=== PATIENT | female | born 1965 | race Caucasian/White ===

== ENCOUNTER 2022-08-29 12:42 | Inpatient (IN) | payer SELFPAY ==
[~2022-08-29] VITALS: Ht 170.2 cm; Wt 83.9 kg
[2022-08-29 13:59] LABS: BASOPHILS % 0.3 % (0.0-1.0); EOSINOPHILS # (AUTO) 0.1 (0.0-0.4); EOSINOPHILS % 0.6 % (0.0-6.0); LYMPHOCYTES # (AUTO) 1.7 (1.0-3.2); MEAN CORPUSCULAR HEMOGLOBIN 18.4 pg (28-32); MEAN CORPUSCULAR HGB CONC 27.9 g/dL (31-35); MONOCYTES # (AUTO) 1.3 (0.2-0.8); MONOCYTES % 10.1 % (4.4-11.3); NEUTROPHILS # (AUTO) 9.3 (2.1-6.9); PLATELET COUNT 300 x10e3/uL (140-360); RED BLOOD COUNT 3.09 x10e6/uL (3.6-5.1); RED CELL DISTRIBUTION WIDTH 20.4 % (11.7-14.4)
[2022-08-29 14:00] LABS: INR 1.23; PARTIAL THROMBOPLASTIN TIME 31.2 seconds (23.8-35.5)
[2022-08-29] MEDS ORDERED: SODIUM CHLORIDE 0.9% 250ML 250 ML IV ONE ×2 (14:00→21:00)
[2022-08-29 14:03] LABS: ALANINE AMINOTRANSFERASE 11 IU/L (0-55); ALBUMIN 3.2 g/dL (3.5-5.0); ALBUMIN/GLOBULIN RATIO 0.8 (0.8-2.0); ALKALINE PHOSPHATASE 124 IU/L (40-150); ANION GAP 15.8 mmol/L (8-16); BLOOD UREA NITROGEN 10 mg/dL (7-26); BUN/CREATININE RATIO 6 (6-25); CALCIUM 9.2 mg/dL (8.4-10.2); CARBON DIOXIDE 21 mmol/L (22-29); CHLORIDE 103 mmol/L (98-107); CREATININE, SERUM 1.67 mg/dL (0.57-1.11); GLUCOSE 107 mg/dL (74-118); POTASSIUM 3.8 mmol/L (3.5-5.1); SODIUM 136 mmol/L (136-145)
[2022-08-29 14:04] LABS: HEMATOCRIT 20.4 % (34.2-44.1); HEMOGLOBIN 5.7 g/dL (12.0-16.0)
[2022-08-29 14:36] LABS: FERRITIN 22.42 ng/mL (4.63-204.00)
[2022-08-29] MEDS ORDERED: IOPAMIDOL 370 MG/ML 100 ML INFUS..BTL INJ ONE (15:00)
[2022-08-29 15:14] LABS: EOSINOPHILS % (MANUAL) 1 % (0-7); LYMPHOCYTES % (MANUAL) 19 % (19-48); MONOCYTES % (MANUAL) 10 % (3.4-9.0); MYELOCYTES % (MANUAL) 1 % (0-0); NEUTROPHILS % (MANUAL) 65 % (40-74); NUCLEATED RED BLOOD CELLS 1; PLATELET ESTIMATE ADEQUATE; PLATELET MORPHOLOGY COMMENT NORMAL; RBC MORPHOLOGY COMMENT NORMAL
[2022-08-29] MEDS ORDERED: SODIUM CHLORIDE 0.9% 250ML 250 ML ONE ×2 (15:31→20:15)
[2022-08-29] MEDS: SODIUM CHLORIDE 0.9% 1000ML 1,000 ML IV SCH ×2 (15:52→21:53)
[2022-08-29 15:56] VITALS: BP 160/72
[2022-08-29 15:59] VITALS: BP 160/72
[2022-08-29 16:10] VITALS: BP 160/72
[2022-08-29] MEDS ORDERED: VALIUM10 MG PO (16:10)
[2022-08-29] MEDS ORDERED: ACETAMINOPHEN 325 MG TAB PO PRN (19:15)
[2022-08-29 20:00] VITALS: BP 152/80
[2022-08-29 21:00] VITALS: BP 152/80
[2022-08-29 21:11] LABS: CLARITY,URINE CLEAR (CLEAR); COLOR,URINE YELLOW (YELLOW); KETONES,URINE NEGATIVE (NEGATIVE); LEUKOCYTE ESTERASE ,URINE NEGATIVE (NEGATIVE); NITRITE,URINE NEGATIVE (NEGATIVE); PROTEIN,URINE DIPSTICK NEGATIVE (NEGATIVE); URINE UROBILINOGEN 1 mg/dL (0.2 - 1)
[2022-08-29 21:18] LABS: BACTERIA,URINE MODERATE /HPF; EPITHELIAL CELLS,URINE FEW /LPF; WBC,URINE (MAN) 0-5 /HPF (0-5)
[2022-08-29] MEDS: ONDANSETRON HCL INJ 2MG/ML 2ML 2 MG/ML VIAL IV PRN (21:50)
[2022-08-29] MEDS: Morphine 4mg INJECTION 4 MG/ML INJ IV PRN (21:50)
[2022-08-30] VITALS (9 sets, daily range): BP systolic 142–163; BP diastolic 71–78
[2022-08-30] MEDS: Morphine 4mg INJECTION 4 MG/ML INJ IV PRN ×3 (05:01→23:53)
[2022-08-30] MEDS: ONDANSETRON HCL INJ 2MG/ML 2ML 2 MG/ML VIAL IV PRN ×2 (05:01→17:29)
[2022-08-30] MEDS: SODIUM CHLORIDE 0.9% 1000ML 1,000 ML IV SCH ×3 (05:01→20:45)
[2022-08-30 05:52] LABS: BASOPHILS # (AUTO) 0.1 (0.0-0.1); BASOPHILS % 0.7 % (0.0-1.0); EOSINOPHILS # (AUTO) 0.1 (0.0-0.4); EOSINOPHILS % 0.9 % (0.0-6.0); HEMATOCRIT 29.5 % (34.2-44.1); HEMOGLOBIN 8.9 g/dL (12.0-16.0); LYMPHOCYTES # (AUTO) 2.1 (1.0-3.2); LYMPHOCYTES % 16.4 % (18.0-39.1); MEAN CORPUSCULAR HEMOGLOBIN 22.3 pg (28-32); MEAN CORPUSCULAR HGB CONC 30.2 g/dL (31-35); MEAN CORPUSCULAR VOLUME 73.9 fL (81-99); MONOCYTES # (AUTO) 1.3 (0.2-0.8); MONOCYTES % 10.3 % (4.4-11.3); NEUTROPHILS # (AUTO) 8.5 (2.1-6.9); NEUTROPHILS % 66.9 % (38.7-80.0); PLATELET COUNT 266 x10e3/uL (140-360); RED BLOOD COUNT 3.99 x10e6/uL (3.6-5.1); RED CELL DISTRIBUTION WIDTH 22.1 % (11.7-14.4)
[2022-08-30 06:01] LABS: INR 1.3; PROTHROMBIN TIME 16.7 seconds (11.9-14.5)
[2022-08-30 06:17] LABS: ALBUMIN 2.8 g/dL (3.5-5.0); ALBUMIN/GLOBULIN RATIO 0.8 (0.8-2.0); ANION GAP 14.1 mmol/L (8-16); CALCIUM 8.4 mg/dL (8.4-10.2); CREATININE, SERUM 1.51 mg/dL (0.57-1.11); POTASSIUM 4.1 mmol/L (3.5-5.1)
[2022-08-30] MEDS: IRON SUCROSE 100 MG in SODIUM CHLORIDE 0.9% 100 ML IV SCH (09:03)
[2022-08-30 09:20] LABS: LYMPHOCYTES % (MANUAL) 14 % (19-48); MONOCYTES % (MANUAL) 4 % (3.4-9.0); MYELOCYTES % (MANUAL) 2 % (0-0); NEUTROPHILS % (MANUAL) 79 % (40-74); PROMYELOCYTES % (MANUAL) 1 % (0-0)
[2022-08-30 09:21] LABS: PLATELET ESTIMATE ADEQUATE; PLATELET MORPHOLOGY COMMENT NORMAL; RBC MORPHOLOGY COMMENT NORMAL
[2022-08-30] MEDS: SENNOSIDES 8.6 MG TAB PO SCH (12:33)
[2022-08-30] MEDS: CYANOCOBALAMIN 1,000 MCG TAB PO SCH (12:33)
[2022-08-30] MEDS: DOCUSATE SODIUM 100 MG CAP PO SCH (12:33)
[2022-08-30] MEDS ORDERED: PROPOFOL IV EMULSION 10 MG/ML 20 ML VIAL ONE ×2 (13:12→13:36)
[2022-08-30] MEDS ORDERED: LIDOCAINE HCL 2% LOCAL INJ 5 ML SDV VIAL INJ ONE ×2 (13:12→13:36)
[2022-08-30] MEDS ORDERED: ESMOLOL HCL 100MG/10ML 10 MG/ML VIAL ONE (13:36)
[2022-08-30] MEDS ORDERED: ONDANSETRON HCL INJ 2MG/ML 2ML 2 MG/ML VIAL ONE (13:36)
[2022-08-30] MEDS ORDERED: SEVOFLURANE INHAL SOLN 250 ML PEN BTL ONE (13:36)
[2022-08-30] MEDS ORDERED: DEXAMETHASONE SOD PHOS INJ 4 MG/ML SDV ONE (13:36)
[2022-08-30] MEDS ORDERED: POVIDONE IODINE 0.05% 0.05 % ML PO ONE (13:36)
[2022-08-30 14:51] LABS: HEMATOCRIT 27.9 % (34.2-44.1); HEMOGLOBIN 8.7 g/dL (12.0-16.0)
[2022-08-30] MEDS ORDERED: FENTANYL CITRATE/PF 100MCG/2 ML INJ ONE (17:40)
[2022-08-30] MEDS ORDERED: MIDAZOLAM HCL 2 MG/2 ML VIAL ONE (17:40)
[2022-08-31] VITALS: BP 165/87
[2022-08-31 04:00] VITALS: BP 158/82
[2022-08-31 05:23] LABS: BASOPHILS # (AUTO) 0.1 (0.0-0.1); BASOPHILS % 0.6 % (0.0-1.0); EOSINOPHILS # (AUTO) 0.1 (0.0-0.4); EOSINOPHILS % 1.1 % (0.0-6.0); HEMATOCRIT 28.2 % (34.2-44.1); HEMOGLOBIN 8.7 g/dL (12.0-16.0); LYMPHOCYTES # (AUTO) 1.9 (1.0-3.2); LYMPHOCYTES % 15.7 % (18.0-39.1); MEAN CORPUSCULAR HEMOGLOBIN 22.3 pg (28-32); MEAN CORPUSCULAR HGB CONC 30.9 g/dL (31-35); MEAN CORPUSCULAR VOLUME 72.1 fL (81-99); MONOCYTES # (AUTO) 1.2 (0.2-0.8); MONOCYTES % 9.5 % (4.4-11.3); NEUTROPHILS # (AUTO) 8.3 (2.1-6.9); NEUTROPHILS % 66.9 % (38.7-80.0); PLATELET COUNT 334 x10e3/uL (140-360); RED BLOOD COUNT 3.91 x10e6/uL (3.6-5.1); RED CELL DISTRIBUTION WIDTH 22.3 % (11.7-14.4)
[2022-08-31 05:46] LABS: ALBUMIN 2.7 g/dL (3.5-5.0); ALBUMIN/GLOBULIN RATIO 0.7 (0.8-2.0); ANION GAP 11.9 mmol/L (8-16); CALCIUM 8.2 mg/dL (8.4-10.2); CREATININE, SERUM 1.35 mg/dL (0.57-1.11); MAGNESIUM 2.1 MG/DL (1.3-2.1); POTASSIUM 3.9 mmol/L (3.5-5.1)
[2022-08-31] MEDS: SODIUM CHLORIDE 0.9% 1000ML 1,000 ML IV SCH ×3 (05:49→21:51)
[2022-08-31 08:00] VITALS: BP 160/73
[2022-08-31 08:48] VITALS: BP 160/73
[2022-08-31] MEDS: SENNOSIDES 8.6 MG TAB PO SCH (09:00)
[2022-08-31] MEDS: CYANOCOBALAMIN 1,000 MCG TAB PO SCH (09:03)
[2022-08-31] MEDS: DOCUSATE SODIUM 100 MG CAP PO SCH (09:03)
[2022-08-31] MEDS: Morphine 4mg INJECTION 4 MG/ML INJ IV PRN ×4 (09:53→22:49)
[2022-08-31 10:33] LABS: EOSINOPHILS % (MANUAL) 1 % (0-7); LYMPHOCYTES % (MANUAL) 10 % (19-48); METAMYELOCYTES % (MANUAL) 1 % (0-0); MONOCYTES % (MANUAL) 10 % (3.4-9.0); NEUTROPHILS % (MANUAL) 75 % (40-74)
[2022-08-31 10:34] LABS: PLATELET ESTIMATE ADEQUATE; PLATELET MORPHOLOGY COMMENT NORMAL
[2022-08-31 10:35] LABS: ANISOCYTOSIS SLIGHT
[2022-08-31] MEDS: IRON SUCROSE 100 MG in SODIUM CHLORIDE 0.9% 100 ML IV SCH (10:47)
[2022-08-31] MEDS: HYDRALAZINE HCL 20 MG/ML VIAL IV PRN ×2 (12:27→22:48)
[2022-08-31] MEDS ORDERED: AMLODIPINE BESYLATE 5 MG TAB PO SCH (13:30)
[2022-08-31 15:57] VITALS: BP 134/82
[2022-08-31] MEDS: PANTOPRAZOLE SOD 40 MG TABEC PO SCH (16:20)
[2022-08-31] MEDS: AMLODIPINE BESYLATE 5 MG TAB PO SCH (16:20)
[2022-08-31 20:00] VITALS: BP 164/82
[2022-09-01] VITALS (7 sets, daily range): BP systolic 134–179; BP diastolic 73–95
[2022-09-01] MEDS: Morphine 4mg INJECTION 4 MG/ML INJ IV PRN ×5 (03:16→22:35)
[2022-09-01 06:27] LABS: BASOPHILS # (AUTO) 0.1 (0.0-0.1); BASOPHILS % 0.9 % (0.0-1.0); EOSINOPHILS # (AUTO) 0.1 (0.0-0.4); EOSINOPHILS % 0.9 % (0.0-6.0); HEMOGLOBIN 9.8 g/dL (12.0-16.0); LYMPHOCYTES # (AUTO) 2.1 (1.0-3.2); LYMPHOCYTES % 13.8 % (18.0-39.1); MEAN CORPUSCULAR HEMOGLOBIN 22.3 pg (28-32); MEAN CORPUSCULAR HGB CONC 29.7 g/dL (31-35); MEAN CORPUSCULAR VOLUME 75.2 fL (81-99); MONOCYTES # (AUTO) 1.2 (0.2-0.8); MONOCYTES % 7.8 % (4.4-11.3); NEUTROPHILS # (AUTO) 11.1 (2.1-6.9); NEUTROPHILS % 72.7 % (38.7-80.0); PLATELET COUNT 446 x10e3/uL (140-360); RED BLOOD COUNT 4.39 x10e6/uL (3.6-5.1); RED CELL DISTRIBUTION WIDTH 23.8 % (11.7-14.4)
[2022-09-01 06:58] LABS: ALBUMIN 2.9 g/dL (3.5-5.0); ALBUMIN/GLOBULIN RATIO 0.8 (0.8-2.0); ANION GAP 13.1 mmol/L (8-16); CALCIUM 8.6 mg/dL (8.4-10.2); CREATININE, SERUM 1.35 mg/dL (0.57-1.11); POTASSIUM 4.1 mmol/L (3.5-5.1)
[2022-09-01] MEDS: DOCUSATE SODIUM 100 MG CAP PO SCH (08:21)
[2022-09-01] MEDS: CYANOCOBALAMIN 1,000 MCG TAB PO SCH (08:21)
[2022-09-01] MEDS: PANTOPRAZOLE SOD 40 MG TABEC PO SCH (08:21)
[2022-09-01] MEDS: SENNOSIDES 8.6 MG TAB PO SCH (08:21)
[2022-09-01] MEDS: AMLODIPINE BESYLATE 5 MG TAB PO SCH (08:24)
[2022-09-01] MEDS: IRON SUCROSE 100 MG in SODIUM CHLORIDE 0.9% 100 ML IV SCH (09:56)
[2022-09-01] MEDS ORDERED: PANTOPRAZOLE SOD 40 MG TABEC PO SCH (10:00)
[2022-09-01] MEDS: HYDRALAZINE HCL 20 MG/ML VIAL IV PRN ×2 (13:30→21:51)
[2022-09-01] MEDS: SODIUM CHLORIDE 0.9% 1000ML 1,000 ML IV SCH (13:32)
[2022-09-01] MEDS ORDERED: LOSARTAN POTASSIUM 25 MG TAB PO SCH (17:50)
[2022-09-02] VITALS (7 sets, daily range): BP systolic 146–196; BP diastolic 70–95
[2022-09-02] MEDS: SODIUM CHLORIDE 0.9% 1000ML 1,000 ML IV SCH ×3 (02:56→21:36)
[2022-09-02 05:09] LABS: BASOPHILS # (AUTO) 0.1 (0.0-0.1); BASOPHILS % 0.5 % (0.0-1.0); EOSINOPHILS # (AUTO) 0.1 (0.0-0.4); EOSINOPHILS % 0.8 % (0.0-6.0); HEMATOCRIT 31.2 % (34.2-44.1); HEMOGLOBIN 9.4 g/dL (12.0-16.0); LYMPHOCYTES # (AUTO) 1.3 (1.0-3.2); LYMPHOCYTES % 8.9 % (18.0-39.1); MEAN CORPUSCULAR HEMOGLOBIN 22.5 pg (28-32); MEAN CORPUSCULAR HGB CONC 30.1 g/dL (31-35); MEAN CORPUSCULAR VOLUME 74.8 fL (81-99); MONOCYTES # (AUTO) 0.9 (0.2-0.8); NEUTROPHILS # (AUTO) 11.9 (2.1-6.9); NEUTROPHILS % 81.8 % (38.7-80.0); PLATELET COUNT 462 x10e3/uL (140-360); RED BLOOD COUNT 4.17 x10e6/uL (3.6-5.1); RED CELL DISTRIBUTION WIDTH 24.4 % (11.7-14.4)
[2022-09-02 05:36] LABS: ANION GAP 14.9 mmol/L (8-16); CALCIUM 8.6 mg/dL (8.4-10.2); CREATININE, SERUM 1.13 mg/dL (0.57-1.11); POTASSIUM 3.9 mmol/L (3.5-5.1)
[2022-09-02] MEDS: PANTOPRAZOLE SOD 40 MG TABEC PO SCH (09:00)
[2022-09-02] MEDS: DOCUSATE SODIUM 100 MG CAP PO SCH (09:00)
[2022-09-02] MEDS: CYANOCOBALAMIN 1,000 MCG TAB PO SCH (09:00)
[2022-09-02] MEDS: SENNOSIDES 8.6 MG TAB PO SCH (09:00)
[2022-09-02] MEDS: Morphine 4mg INJECTION 4 MG/ML INJ IV PRN (09:36)
[2022-09-02] MEDS: IRON SUCROSE 100 MG in SODIUM CHLORIDE 0.9% 100 ML IV SCH (09:44)
[2022-09-02] MEDS ORDERED: FENTANYL CITRATE/PF 100MCG/2 ML INJ ONE (12:16)
[2022-09-02] MEDS ORDERED: MIDAZOLAM HCL 2 MG/2 ML VIAL ONE (12:16)
[2022-09-02] MEDS ORDERED: IOPAMIDOL 610MG/1ML 300 MG/ML VIAL IV ONE (16:14)
[2022-09-02] MEDS ORDERED: PHENAZOPYRIDINE HCL 100 MG TAB PO PRN (17:00)
[2022-09-02] MEDS ORDERED: ACETAMINOPHEN/CODEINE 300MG - 30MG TAB PO PRN (17:00)
[2022-09-02] MEDS ORDERED: ACETAMINOPHEN 1000 MG/100 ML 100 ML IV ONE (17:41)
[2022-09-02] MEDS ORDERED: ACETAMINOPHEN 1000 MG/100 ML IV ONE (17:42)
[2022-09-02] MEDS: AMLODIPINE BESYLATE 5 MG TAB PO SCH (21:34)
[2022-09-02] MEDS: LOSARTAN POTASSIUM 25 MG TAB PO SCH (21:35)
[2022-09-03 05:55] LABS: BASOPHILS # (AUTO) 0.1 (0.0-0.1); BASOPHILS % 0.3 % (0.0-1.0); HEMATOCRIT 33.5 % (34.2-44.1); HEMOGLOBIN 10.1 g/dL (12.0-16.0); LYMPHOCYTES # (AUTO) 0.9 (1.0-3.2); LYMPHOCYTES % 3.9 % (18.0-39.1); MEAN CORPUSCULAR HEMOGLOBIN 22.5 pg (28-32); MEAN CORPUSCULAR HGB CONC 30.1 g/dL (31-35); MEAN CORPUSCULAR VOLUME 74.8 fL (81-99); MONOCYTES # (AUTO) 0.5 (0.2-0.8); NEUTROPHILS # (AUTO) 21.6 (2.1-6.9); NEUTROPHILS % 92.9 % (38.7-80.0); PLATELET COUNT 459 x10e3/uL (140-360); RED BLOOD COUNT 4.48 x10e6/uL (3.6-5.1); RED CELL DISTRIBUTION WIDTH 25.4 % (11.7-14.4)
[2022-09-03 06:20] LABS: ALBUMIN 2.8 g/dL (3.5-5.0); ALBUMIN/GLOBULIN RATIO 0.7 (0.8-2.0); ANION GAP 14.5 mmol/L (8-16); CALCIUM 8.8 mg/dL (8.4-10.2); CREATININE, SERUM 1.13 mg/dL (0.57-1.11); MAGNESIUM 2.2 MG/DL (1.3-2.1); POTASSIUM 4.5 mmol/L (3.5-5.1)
[2022-09-03] MEDS: SODIUM CHLORIDE 0.9% 1000ML 1,000 ML IV SCH ×2 (07:30→17:29)
[2022-09-03 08:00] VITALS: BP 152/68
[2022-09-03 08:39] VITALS: BP 152/68
[2022-09-03] MEDS: DOCUSATE SODIUM 100 MG CAP PO SCH (08:43)
[2022-09-03] MEDS: PANTOPRAZOLE SOD 40 MG TABEC PO SCH (08:44)
[2022-09-03] MEDS: SENNOSIDES 8.6 MG TAB PO SCH (08:44)
[2022-09-03] MEDS: LOSARTAN POTASSIUM 25 MG TAB PO SCH (08:44)
[2022-09-03] MEDS: AMLODIPINE BESYLATE 5 MG TAB PO SCH (08:44)
[2022-09-03] MEDS: CYANOCOBALAMIN 1,000 MCG TAB PO SCH (08:44)
[2022-09-03] MEDS: IRON SUCROSE 100 MG in SODIUM CHLORIDE 0.9% 100 ML IV SCH (08:45)
[2022-09-03 08:51] LABS: LYMPHOCYTES % (MANUAL) 4 % (19-48); MONOCYTES % (MANUAL) 1 % (3.4-9.0); NEUTROPHILS % (MANUAL) 95 % (40-74); PLATELET ESTIMATE ADEQUATE; PLATELET MORPHOLOGY COMMENT NORMAL; RBC MORPHOLOGY COMMENT NORMAL
[2022-09-03 14:57] VITALS: BP 169/82
[2022-09-03 16:00] VITALS: BP 175/90
[2022-09-03 16:15] VITALS: BP 156/78
[2022-09-03] MEDS: Morphine 4mg INJECTION 4 MG/ML INJ IV PRN (17:38)
[2022-09-03] MEDS ORDERED: LOSARTAN POTASSIUM 25 MG TAB PO ONE (19:30)
[2022-09-03 20:00] VITALS: BP 170/89
[2022-09-04] VITALS: BP_SYST 138; BP_SYST 176; BP_DIAS 57; BP_DIAS 89
[2022-09-04] MEDS: SODIUM CHLORIDE 0.9% 1000ML 1,000 ML IV SCH (04:42)
[2022-09-04 05:01] LABS: BASOPHILS # (AUTO) 0.1 (0.0-0.1); BASOPHILS % 0.8 % (0.0-1.0); EOSINOPHILS # (AUTO) 0.1 (0.0-0.4); EOSINOPHILS % 1.1 % (0.0-6.0); HEMATOCRIT 30.9 % (34.2-44.1); HEMOGLOBIN 9.3 g/dL (12.0-16.0); LYMPHOCYTES # (AUTO) 1.5 (1.0-3.2); LYMPHOCYTES % 18.9 % (18.0-39.1); MEAN CORPUSCULAR HGB CONC 30.1 g/dL (31-35); MEAN CORPUSCULAR VOLUME 76.5 fL (81-99); MONOCYTES # (AUTO) 0.8 (0.2-0.8); MONOCYTES % 9.5 % (4.4-11.3); NEUTROPHILS # (AUTO) 5.5 (2.1-6.9); NEUTROPHILS % 69.1 % (38.7-80.0); PLATELET COUNT 560 x10e3/uL (140-360); RED BLOOD COUNT 4.04 x10e6/uL (3.6-5.1); RED CELL DISTRIBUTION WIDTH 25.2 % (11.7-14.4)
[2022-09-04 05:14] LABS: ANION GAP 12.7 mmol/L (8-16); CALCIUM 8.5 mg/dL (8.4-10.2); CREATININE, SERUM 1.02 mg/dL (0.57-1.11); POTASSIUM 3.7 mmol/L (3.5-5.1)
[2022-09-04] MEDS ORDERED: CEFUROXIME500 MG PO (08:34)
[2022-09-04] MEDS ORDERED: NORVASC5 MG PO (08:34)
[2022-09-04] MEDS ORDERED: Acetaminophen/Codeine 300-30MG PO (08:34)
[2022-09-04 08:38] VITALS: BP 148/87
[2022-09-04 08:44] VITALS: BP 148/87
[2022-09-04 08:46] VITALS: BP 148/87
[2022-09-04] MEDS: DOCUSATE SODIUM 100 MG CAP PO SCH (08:47)
[2022-09-04] MEDS: CYANOCOBALAMIN 1,000 MCG TAB PO SCH (08:47)
[2022-09-04] MEDS: AMLODIPINE BESYLATE 5 MG TAB PO SCH (08:47)
[2022-09-04] MEDS: SENNOSIDES 8.6 MG TAB PO SCH (09:00)
[2022-09-04] MEDS ORDERED: LOSARTAN POTASSIUM 100 MG TAB PO SCH (09:00)
[2022-09-04] MEDS: PANTOPRAZOLE SOD 40 MG TABEC PO SCH (09:00)
[2022-09-04 12:27] VITALS: BP 118/50
[2022-09-04 12:28] VITALS: BP 169/80
[2022-09-04] MEDS ORDERED: PYRIDIUM100 MG PO (13:19)
[2022-09-04] MEDS ORDERED: LOSARTAN POTASS25 MG PO (13:19)
[2022-09-04] MEDS ORDERED: ONDANSETRON HCL 4 MG ORAL DISINTEGRATING TAB PO PRN (13:45)
== END 2022-09-04 13:58 | disposition home or self-care (01) | DRG 812 ==
LOC: ER 13:03 → ERHOLD 13:53 → MED/SURG2 15:26 → OBSVTOIN 08-30 09:37 → MED/SURG3 08-30 18:08
PROVIDERS: ADMIT Internal Medicine; ATTEND Internal Medicine
PROC: 30233N1 Transfusion of Nonautologous Red Blood Cells into Peripheral Vein, Percutaneous Approach (ICD-10-PCS; principal; 2022-08-29)
PROC: 0DB78ZX Excision of Stomach, Pylorus, Via Natural or Artificial Opening Endoscopic, Diagnostic (ICD-10-PCS; 2022-08-30)
PROC: 0T7D8DZ Dilation of Urethra with Intraluminal Device, Via Natural or Artificial Opening Endoscopic (ICD-10-PCS; 2022-09-02)
DX: D50.0 Iron deficiency anemia secondary to blood loss (chronic) (principal); N13.2 Hydronephrosis with renal and ureteral calculous obstruction; N17.9 Acute kidney failure, unspecified; N39.0 Urinary tract infection, site not specified; F41.9 Anxiety disorder, unspecified; K29.00 Acute gastritis without bleeding; N81.10 Cystocele, unspecified; N35.92 Unspecified urethral stricture, female
CPT/HCPCS: 0223U; 36415; 43239; 71045; 74018; 74177; 74420; 80048; 80053; 81001; 82270; 82607; 82728; 83540; 83690; 83735; 83970; 84466; 84550; 85014; 85018; 85025; 85610; 85730; 86850; 86900; 86920; 87040; 87086; 87186; 88304; 88305; 88312; 88342; 94799; 96360; 99284; C1758; C1769; C2617; G0378; J0696; J1100; J1756; J2001; J2250; J2270; J2405; J7030; J7050; P9016; Q9967